=== PATIENT | female | born 1995 | race Caucasian/White ===

== ENCOUNTER 2017-10-17 17:20 | Emergency (ER) | payer BC ==
--- NOTE | 2017-10-17 18:03 | RAD ---
INDICATION: Headaches COMPARISON: None TECHNIQUE: Noncontrast axial source images were acquired from the skull base to the vertex. FINDINGS: Ventricles/sulci: The ventricles and cisterns are normal in size and configuration for age. Brain parenchyma: There is no focal parenchymal finding, evidence of intracranial mass, or intracranial mass effect. Intracranial hemorrhage:None. Extra-axial spaces: There are no abnormal extra axial fluid collections or evidence of extra-axial mass. Calvarium: There is no calvarial fracture or other calvarial abnormality. Scalp: There is no evidence of scalp or extracalvarial soft tissue abnormality. Paranasal sinuses/mastoid: The paranasal sinuses and mastoid air cells are clear. Other: None. IMPRESSION: NEGATIVE EXAMINATION
[2017-10-17] MEDS ORDERED: Sodium Phosphate ADULT ENEMA* 118 ml bottle PR ONE (18:18)
[2017-10-17] MEDS ORDERED: Sodium Phosphate ADULT ENEMA* 118 ml bottle ONE (18:18)
[2017-10-17] MEDS ORDERED: Acetaminophen TAB* 325 MG PO ONE (18:19)
[2017-10-17] MEDS ORDERED: Magnesium CITRATE* 300 ML BTL PO ONE (18:22)
--- NOTE | 2017-10-17 18:46 | ED ---
Audrey Hu Gabriel, scribed for Abram Nowak on 10/17/17 at 1745 . Headache - HPI Summary HPI Summary: This patient is a 22 year old F presenting to [facility] accompanied by her family with a chief complaint of VILLASEÑOR that began yesterday and is getting worse. The patient rates the pain 10/10 in severity and located in the left forehead. Symptoms aggravated by sound. Patient reports photophobia and constipation. Pt is on Percocet and Keppra. Pt had head injury last week with mild subarachnoid hemorrhage with a non-displaced fracture and contracoup and was in ICU at [facility] for 3 days - History Of Current Complaint Chief Complaint: EDHeadInjury Stated Complaint: HEADACHE Time Seen by Provider: 10/17/17 17:35 Hx Obtained From: Patient Onset/Duration: Started days ago, Still Present Initially Headache Was: Initial Pain Scale(0-10)= - 5 Currently Pain Is: Current Pain Scale(0-10)= - 10 Timing: Constant Location of Headache: Frontal Aggravating Factor: Bright Lights, Other - sounds Associated Signs And Symptoms: Other (Noted In Comments) - photophobia and constipation. - Allergies/Home Medications Allergies/Adverse Reactions: Allergies Allergy/AdvReac Type Severity Reaction Status Date / Time No Known Allergies Allergy Verified 10/17/17 17:25 Home Medications: Home Medications ALPRAZolam TAB* [Xanax TAB*] 0.5 mg PO DAILY PRN 10/17/17 [History Confirmed ] levETIRAcetam TAB* [Keppra TAB*] 500 mg PO BID 10/17/17 [History Confirmed 10/17] oxyCODONE/Acetam5/325MG PREPAK [Percocet 5/325 TAB*] 1 tab PO BID 10/17/17 [ History Confirmed 10/17/17] PMH/Surg Hx/FS Hx/Imm Hx Endocrine/Hematology History: Denies: Hx Blood Disorders, Hx Diabetes, Hx Systemic Lupus Erythematosus Cardiovascular History: Denies: Hx Cardiac Arrest, Hx Coronary Artery Disease, Hx Deep Vein Thrombosis Respiratory History: Denies: Hx Chronic Obstructive Pulmonary Disease (COPD), Hx Seasonal Allergies GI History: Denies: Hx Diverticulosis, Hx Ileostomy Neurological History: Reports: Other Neuro Impairments/Disorders - head injury Psychiatric History: Denies: Hx Attention Deficit Hyperactivity Disorder Infectious Disease History: No Infectious Disease History: Denies: Traveled Outside the [place] in Last 30 Days - Family History Known Family History: Negative: Cardiac Disease, Hypertension, Diabetes, Renal Disease, Respiratory Disease, Seizure Disorder, Blood Disorder - Social History Lives: With Family Alcohol Use: Weekly Substance Use Type: Reports: None Smoking Status (MU): Smoker, Current Status Unknown Review of Systems Positive: Photophobia Gastrointestinal: Other - constipation Positive: Headache All Other Systems Reviewed And Are Negative: Yes Physical Exam - Summary Physical Exam Summary: Appearance: Well appearing, no pain distress Skin: warm, dry, reflects adequate perfusion Head/face: normal Eyes: EOMI, JOSE ENT: normal Neck: supple, non-tender Respiratory: CTA, breath sounds present Cardiovascular: RRR, pulses symmetrical Abdomen: non-tender, soft Bowel: present Musculoskeletal: normal, strength/ROM intact Neuro: normal, sensory motor intact, A&Ox3 Triage Information Reviewed: Yes Vital Signs On Initial Exam: Initial Vitals Temp Pulse Resp BP Pulse Ox 97 F 90 16 125/83 100 10/17/17 17:25 10/17/17 17:25 10/17/17 17:25 10/17/17 17:25 10/17/17 17:25 Vital Signs Reviewed: Yes Diagnostics - Vital Signs Vital Signs Temp Pulse Resp BP Pulse Ox 10/17/17 17:25 97 F 90 16 125/83 100 - Laboratory Lab Statement: Any lab studies that have been ordered have been reviewed, and results considered in the medical decision making process. - CT CT Brain CT Interpretation Completed By: Radiologist - NEGATIVE EXAMINATION ED physician has reviewed this radiology report. Headache Course/Dx - Course Assessment/Plan: This patient is a 22 year old F presenting to [facility] accompanied by her family with a chief complaint of VILLASEÑOR that began yesterday and is getting worse. The patient rates the pain 10/10 in severity and located in the left forehead. Symptoms aggravated by sound. Patient reports photophobia and constipation. Pt is on Percocet and Keppra. Pt had head injury last week with mild subarachnoid hemorrhage with a non-displaced fracture and contracoup and was in ICU at [facility] for [address] Brain reveals , per radiologist, NEGATIVE EXAMINATION. In the ED course the patient was given magnesium, Tylenol,. Dx headache, s/p subdural subarachnoid hemorrhage, and constipation,. Patient will be discharged and follow up from neurosurgeon. The patient is agreeable with this plan. - Diagnoses Differential Diagnosis/HQI/PQRI: Epidural Hematoma, Subdural Hematoma, Migraine , Subarachnoid Hemorrhage, Tension Headache Provider Diagnoses: Headache, History of subarachnoid hemorrhage, Constipation Discharge - Sign-Out/Discharge Documenting (check all that apply): Discharge/Admit/Transfer - Discharge Plan Condition: Stable Disposition: HOME Patient Education Materials: Acute Headache (ED) Referrals: No Primary Care Phys,NOPCP [Primary Care Provider] - Additional Instructions: Please follow up with your neurosurgeon as soon as your return to [place]. RETURN TO THE ER FOR ANY NEW OR WORSENING SYMPTOMS - Billing Disposition and Condition Condition: STABLE Disposition: HOME The documentation as recorded by the Audrey felton Gabriel accurately reflects the service I personally performed and the decisions made by , Abram Nowak.
[2017-10-17 19:12] VITALS: BP 115/74
== END 2017-10-17 19:10 | disposition home or self-care (01) ==
LOC: ED 17:20
DX: R51 Headache (principal); K59.00 Constipation, unspecified; S06.6X9S Traumatic subarachnoid hemorrhage with loss of consciousness of unspecified duration, sequela; X58.XXXS Exposure to other specified factors, sequela; F17.200 Nicotine dependence, unspecified, uncomplicated
CPT/HCPCS: 70450; 99282; A9270-GY